=== PATIENT | male | born 1960 | race Caucasian/White ===

== ENCOUNTER 2020-10-03 20:52 | Day surgery (SDC) | payer OTHER ==
[~2020-10-03] VITALS: Ht 165.1 cm; Wt 68.6 kg
[2020-10-03] MEDS ORDERED: LISI20TA33 PO (21:09)
[2020-10-03] MEDS ORDERED: WARF-23 PO (21:09)
[2020-10-03] MEDS ORDERED: CARV3.12 PO (21:09)
[2020-10-03] MEDS ORDERED: ATOR80TA59 PO (21:09)
[2020-10-03] MEDS ORDERED: FURO20TA2 PO (21:09)
[2020-10-03] MEDS ORDERED: SPIR-10 PO (21:09)
[2020-10-03 21:37] LABS: BASO # 0.1 10^3/uL (0.0-0.2); BASO % 0.4 % (0.0-1.0); EOS # 0.2 10^3/uL (0.0-0.5); EOS % 1.8 % (0.0-3.0); HEMATOCRIT 34.8 % (42.0-52.0); HEMOGLOBIN 11.5 g/dl (13.5-17.5); LYMPH # 2.1 10^3/uL (1.5-5.0); LYMPH % 18.1 % (24.0-44.0); MEAN CORPUSCULAR HEMOGLOBIN 30.7 pg (27.0-33.0); MEAN CORPUSCULAR VOLUME 92.8 fl (80.0-96.0); MONO # 1.2 10^3/uL (0.0-0.8); MONO % 10.2 % (0.0-5.0); NEUTROPHILS # 7.9 10^3/uL (1.5-8.5); NEUTROPHILS % 68.2 % (36.0-66.0); PLATELET COUNT, AUTOMATED 239 10^3/uL (150-450); RED BLOOD COUNT 3.75 10^6/uL (4.30-6.10); WHITE BLOOD COUNT 11.6 10^3/uL (4.0-10.0)
[2020-10-03] MEDS ORDERED: ceFAZolin SOD 1 GM in D5W MINI-BAG PLUS 50 ML IV ONE (21:45)
[2020-10-03] MEDS ORDERED: BOOSTRIX/ADACEL VACCINE (DIPHTH/PERTUSS/ACELL/TETANUS) 0.5ML SYR IM ONE (21:45)
[2020-10-03 21:50] LABS: INR 2.58; PROTHROMBIN TIME 28.3 SECONDS (12.5-14.3)
[2020-10-03 21:51] LABS: PARTIAL THROMBOPLASTIN TIME 42.2 SECONDS (24.2-38.5)
[2020-10-03 22:00] LABS: BLOOD UREA NITROGEN 42 MG/DL (7-18); CALCIUM LEVEL 8.9 MG/DL (8.8-10.2); CARBON DIOXIDE LEVEL 23 MEQ/L (21-32); CHLORIDE LEVEL 103 MEQ/L (98-107); CREATININE FOR GFR 1.28 MG/DL (0.70-1.30); GLOMERULAR FILTRATION RATE > 60.0 (>49); GLUCOSE, FASTING 95 MG/DL (70-100); POTASSIUM SERUM 4.7 MEQ/L (3.5-5.1); SODIUM LEVEL 134 MEQ/L (136-145)
[2020-10-03 22:54] LABS: RSV AMPLIFICATION NEGATIVE (NEGATIVE)
[2020-10-03] MEDS ORDERED: KEFL500C17 PO (23:20)
[2020-10-03] MEDS ORDERED: WARF4TAB51 PO (23:31)
[2020-10-03] MEDS ORDERED: MIDAZOLAM INJ 2MG/2ML VIAL (J2250 PER 1MG) As Ordered ONE (23:55)
[2020-10-03] MEDS ORDERED: fentaNYL 100 MCG/2 ML INJECTION (J3010) As Ordered ONE (23:55)
[2020-10-03] MEDS ORDERED: LIDOCAINE 2% 100MG/5ML SDV (FOR ANES.) As Ordered ONE (23:56)
[2020-10-03] MEDS ORDERED: propofoL 200 MG/20 ML VIAL As Ordered ONE (23:56)
[2020-10-04] MEDS ORDERED: ceFAZolin 1GM VIAL (J0690 PER 500MG) As Ordered ONE ×2 (00:49→01:35)
[2020-10-04] MEDS ORDERED: ACETAMINOPHEN 1000MG 100ML IV BTL (OFIRMEV) (J0131 PER 10MG) As Ordered ONE (01:04)
[2020-10-04] MEDS ORDERED: ONDANSETRON 4MG/2ML VIAL As Ordered ONE (01:07)
[2020-10-04] MEDS ORDERED: dexameTHASONE 4 MG/ML 1ML VIAL (J1100 PER 1MG) As Ordered ONE (01:07)
[2020-10-04] MEDS ORDERED: ePHEDrine SULFATE 25 MG/5 ML(5MG/ML) SYRINGE As Ordered ONE (01:25)
[2020-10-04] MEDS ORDERED: BUPIVACAINE HCL 0.25% 30ML VIAL As Ordered ONE (01:35)
[2020-10-04] MEDS ORDERED: MEPERIDINE INJ 25 MG/ML VIAL (J2175) As Ordered ONE (02:06)
[2020-10-04] MEDS: MEPERIDINE INJ 25 MG/ML VIAL (J2175) IV PRN ×2 (02:07→02:19)
[2020-10-04] MEDS ORDERED: LR 1,000 ML IV SCH (02:15)
[2020-10-04] MEDS ORDERED: ONDANSETRON 4MG/2ML VIAL IV PRN (02:15)
[2020-10-04] MEDS ORDERED: fentaNYL 100 MCG/2 ML INJECTION (J3010) IV PRN (02:15)
[2020-10-04] MEDS ORDERED: oxyCODONE 5MG TAB PO PRN (02:15)
[2020-10-04 02:30] VITALS: BP 151/66
--- NOTE | 2020-10-04 07:39 | CR ---
CONSULTATION DATE: 10/03/2020 TIME: 11:30 P.M SERVICE CONSULTED: Orthopedic Surgery PHYSICIAN CONSULTING: Anthony Quan M.D. 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 Patient states that he presented to [facility] after the chisel punch perforated his right first webspace which included the adductor pollicis musculature. The patient was seen by the Orthopedic Surgeon and indicated for a foreign body removal of right hand, traumatic laceration, exploration and irrigation and debridement., PAST MEDICAL HISTORY: Atrial fibrillation, previous myocardial infarction, previous stroke. Current INR was 2.5. PAST SURGICAL HISTORY: Patient denies. MEDICATION ALLERGIES: Patient denies. CURRENT MEDICATIONS: 1. Warfarin. SOCIAL HISTORY: He is a half a pack smoker a day with a 25 pack year history. Nondrinker and non-IV drug user. REVIEW OF SYSTEMS: A 14 point review of systems was negative unless otherwise described in the HPI above. PHYSICAL EXAMINATION: Alert to person, time and place. Right hand: The patient had a chisel punch perforating the first webspace of the right hand without any appreciable bleeding. Patient otherwise appeared to be neurovascularly intact to the right hand. He was motor intact in the radial, medial and ulnar nerve distributions of the right hand. His sensation was intact to the radial and ulnar borders to each of his digits. He had full flexion and extension of his thumb and index finger, middle finger, ring finger and small finger about the dorsal interphalangeal, proximal interphalangeal and metacarpal phalangeal joints. He had full extension and flexion of his right wrist. He had a brisk capillary refill of under 2 seconds to each of his digits. He did have the aforementioned metallic chisel punch through the first webspace of his right hand. IMAGING: Radiographs of his right hand demonstrated no osseous abnormalities of his right hand, however he did have a metallic foreign body in the first webspace. ASSESSMENT: A 60-year-old male with a metallic chisel punch to the first webspace of his right hand requiring removal and irrigation and debridement. PLAN: Patient was NPO since noon and indicated for a right foreign body removal of his first webspace of his right hand as well as an irrigation and debridement. Given the fact that he was neurovascularly intact on presentation he required a minimal exploration primarily irrigation and debridement of the aforementioned injury.
--- NOTE | 2020-10-04 08:10 | REP ---
INDICATION: SURGERY COMPARISON: 10/03/2020 TECHNIQUE: Portable AP and lateral views of the right hand FINDINGS: Previously noted foreign body has been removed. Soft tissue swelling and postsurgical changes are appreciated. Osseous structures appear intact. IMPRESSION: Foreign body removed. Postsurgical changes. No acute fracture or dislocation. <Electronically signed by Sathya Rodriguez > 10/04/20 [id number]
--- NOTE | 2020-10-04 08:14 | RO ---
OPERATIVE NOTE DATE OF OPERATION: 10/04/2020 at 1 a.m. PREOPERATIVE DIAGNOSIS: Right hand first web space foreign body. POSTOPERATIVE DIAGNOSIS: Right hand first web space foreign body. NAME OF OPERATION: 1. Right hand foreign body removal. 2. Right hand incision and debridement of the first web space. SURGEON: Anthony Quan MD PLASTICS REPAIRER: None. SUPERVISING ATTENDING: Anthony Quan MD FINDINGS: The patient had a metallic chisel punch in the first web space of the right hand. INDICATIONS FOR PROCEDURE: This was a 60-year-old male who sustained a chisel punch through the right hand first web space with a lodged metallic foreign body in the first web space of the patient's right hand. The patient presented to the [facility] Emergency Room for further evaluation and treatment. Orthopedic surgery was consulted and the patient is indicated for removal of the metallic body as well as an incision and debridement of the right hand. ANESTHESIA: General endotracheal anesthesia (GETA). TOURNIQUET TIME: None used. ESTIMATED BLOOD LOSS: 1 mL. SPECIMENS: None. CULTURES: None. IMPLANTS: None. IV FLUIDS: Please see anesthesia report. IV ANTIBIOTICS: 1 gram Ancef. PROCEDURE IN DETAIL: The patient was met in the preoperative holding area where the patient's operative extremity was signed. The patient's consent was confirmed to be correct; the patient's identity was confirmed to be correct. The patient was transported to the operating theater where he was placed supine on regular surgical flat top with a hand table supporting his right hand. The patient had a safety strap securing the patient to the bed. All bony prominences were well padded. The bilateral lower extremities had SCDs placed. A timeout was called to confirm the correct patient, correct operative extremity and correct consent. All staff was in agreement. The patient was draped in the usual sterile fashion. We began the procedure by removing the metallic body after soaking it in Betadine. Once this was removed, we then inserted a hemostat into the perforation tract and removed any nonviable tissue using a rongeur. We freshened up the skin edges on the dorsal aspect of the first web space. We then copiously irrigated with 6 liters of normal saline removing all potential grease within the perforation tract. After copious irrigation and removal of the necrotic-looking skin edges and debridement of any necrotic-looking fat, we then loosely approximated the skin edges using a 3-0 nylon on the palmar aspect of the perforation and 3-0 nylon on the dorsal aspect of the perforation tract. The patient was then placed in a thumb spica splint. The patient was then extubated without complication and transported to the postanesthesia care unit. The patient will remain in the splint for 5-7 days for soft tissue rest. The patient will then followup with the [facility] in one week for splint removal and wound check. At that point in time, he will likely have the sutures removed or he will return in another week which will be two weeks postoperatively for a suture removal. After splint removal in one week, the patient will be range of motion of his right hand as tolerated and if it necessitates occupational therapy, we will refer to the occupational therapist for hand strengthening exercises. The patient will be discharged with Keflex, at [facility], for 10 days and Tylenol [id number] for pain control.
--- NOTE | 2020-10-04 08:17 | REP ---
INDICATION: penetrating trauma to hand. Repeat dictation. Preliminary report is provided at the time of the exam by himanshu BOUDREAUX. COMPARISON: None. TECHNIQUE: AP and lateral views. FINDINGS: Two views of the right hand demonstrate a large linear metallic foreign body apparently coursing through the thenar soft tissues between the 1st and 2nd metacarpals consistent with penetrating soft tissue trauma. No fracture is seen.. There are mild osteoarthritic changes. A tiny accessory ossicle and osteoarthritic spurring are seen at the distal radioulnar articulation.. . IMPRESSION: Metallic punch 2 all extending through the thenar soft tissues between the 1st and 2nd metacarpals. Osteoarthritic changes. No fracture seen.. <Electronically signed by Mike Danielle > 10/04/20 [id number]
== END 2020-10-04 03:05 | disposition home or self-care (01) ==
LOC: M ED 20:52 → M SDC 23:50 → M RR INP 10-04 02:20 → M SDC 10-04 03:05
PROVIDERS: ATTEND Emergency Medicine
DX: S61.441A Puncture wound with foreign body of right hand, initial encounter (principal); Y92.015 Private garage of single-family (private) house as the place of occurrence of the external cause; Y93.H3 Activity, building and construction; Y99.9 Unspecified external cause status; I48.91 Unspecified atrial fibrillation; I25.2 Old myocardial infarction; Z86.73 Personal history of transient ischemic attack (TIA), and cerebral infarction without residual deficits; Z79.01 Long term (current) use of anticoagulants; Z79.899 Other long term (current) drug therapy; F17.218 Nicotine dependence, cigarettes, with other nicotine-induced disorders; Z18.10 Retained metal fragments, unspecified; X58.XXXA Exposure to other specified factors, initial encounter
CPT/HCPCS: 20103; 73120; 80048; 85025; 85610; 85730; 87631; 90471; 90715; 96365; 99285; J0131; J0690; J1100; J2175; J2250; J2405; J3010

== ENCOUNTER → 2022-12-16 | Outpatient (CLI) | payer OTHER ==
[~2022-12-16] MED LIST: ATOR80TA59 PO; CARV3.12 PO; FURO20TA2 PO; KEFL500C17 PO; LISI20TA33 PO; SPIR-10 PO; WARF-23 PO; WARF4TAB51 PO
== END ==
LOC: M RAD 14:58
PROVIDERS: ATTEND Orthopaedic Surgery
DX: M48.061 Spinal stenosis, lumbar region without neurogenic claudication (principal)